=== PATIENT | male | born 1950 | race Caucasian/White ===

== ENCOUNTER 2022-12-20 10:37 | Emergency (ER) | payer OTHER, MEDICARE | END 2022-12-20 12:20 | disposition home or self-care (01) | LOC: JP.ED 10:37 | DX: S20.212A Contusion of left front wall of thorax, initial encounter (principal); I10 Essential (primary) hypertension; E78.00 Pure hypercholesterolemia, unspecified; Z87.891 Personal history of nicotine dependence; Z79.82 Long term (current) use of aspirin; Z79.899 Other long term (current) drug therapy; W01.0XXA Fall on same level from slipping, tripping and stumbling without subsequent striking against object, initial encounter; Y92.480 Sidewalk as the place of occurrence of the external cause | CPT/HCPCS: 71250; 71250-26; 99283 ==

== ENCOUNTER 2023-06-11 16:55 | Emergency (ER) | payer OTHER, MEDICARE | END 2023-06-11 17:56 | disposition home or self-care (01) | LOC: JP.ED 16:55 | DX: M25.561 Pain in right knee (principal); M76.9 Unspecified enthesopathy, lower limb, excluding foot; I10 Essential (primary) hypertension; E78.00 Pure hypercholesterolemia, unspecified; Z79.82 Long term (current) use of aspirin; Z79.899 Other long term (current) drug therapy | CPT/HCPCS: 73565; 73565-26; 99283 ==

== ENCOUNTER 2024-01-31 11:54 | Emergency (ER) | payer OTHER, MEDICARE | END 2024-01-31 13:16 | disposition home or self-care (01) | LOC: JP.ED 11:54 | DX: K08.89 Other specified disorders of teeth and supporting structures (principal); E78.00 Pure hypercholesterolemia, unspecified; I10 Essential (primary) hypertension; Z79.82 Long term (current) use of aspirin; Z79.899 Other long term (current) drug therapy | CPT/HCPCS: 99282 ==

== ENCOUNTER 2024-05-12 13:06 | Emergency (ER) | payer OTHER, MEDICARE ==
[2024-05-12 14:08] LABS: BASOPHILS ABSOLUTE AUTO 0.03 K/uL (0.00-0.10); BASOPHILS PERCENT AUTO 0.5 % (0.1-1.3); EOSINOPHILS ABSOLUTE AUTO 0.07 K/uL (0.00-0.40); EOSINOPHILS PERCENT AUTO 1.3 % (0.0-5.4); HEMATOCRIT 40.3 % (38.4-49.7); HEMOGLOBIN 13.8 g/dL (12.9-16.9); IMMATURE GRAN PERCENT AUTO 0.2 % (0.0-0.7); LYMPHOCYTES ABSOLUTE AUTO 1.72 K/uL (0.8-3.3); LYMPHOCYTES PERCENT AUTO 31.3 % (11.4-47.7); MEAN CORPUSCULAR HEMOGLOBIN 29.8 pg (31.6-35.5); MEAN CORPUSCULAR HGB CONC 34.2 g/dL (31.6-35.5); MONOCYTES ABSOLUTE AUTO 0.49 K/uL (0.20-0.90); MONOCYTES PERCENT AUTO 8.9 % (3.3-12.6); NEUTROPHILS ABSOLUTE AUTO 3.18 K/uL (1.0-7.6); NEUTROPHILS PERCENT AUTO 57.8 % (40.0-78.1); PLATELET COUNT,PLT 131 K/uL (130-375); RED BLOOD CELL COUNT 4.63 M/uL (4.14-5.76); WHITE BLOOD CELL COUNT,WBC 5.5 K/uL (3.2-11.0)
[2024-05-12 14:09] LABS: IMMATURE GRAN ABSOLUTE AUTO 0.01 K/uL (0.00-0.23)
[2024-05-12 14:23] LABS: CALCIUM 8.6 mg/dL (8.5-10.1); CREATININE 1.4 mg/dL (0.8-1.3); EST CRCL DRUG DOSING (CG) 45.46 mL/min; POTASSIUM,K 3.8 mmol/L (3.6-5.2)
[2024-05-12 14:24] LABS: ANION GAP 10.8 mmol/L (5.0-14.0)
== END 2024-05-12 15:53 | disposition home or self-care (01) ==
LOC: JP.ED 13:06
DX: S09.90XA Unspecified injury of head, initial encounter (principal); I10 Essential (primary) hypertension; E78.00 Pure hypercholesterolemia, unspecified; Z87.891 Personal history of nicotine dependence; K21.9 Gastro-esophageal reflux disease without esophagitis; Z79.82 Long term (current) use of aspirin; Z79.899 Other long term (current) drug therapy; W01.198A Fall on same level from slipping, tripping and stumbling with subsequent striking against other object, initial encounter
CPT/HCPCS: 36415; 70450; 72125; 76377; 80048; 83735; 85025; 93005; 99284

== ENCOUNTER 2025-01-21 15:38 | Emergency (ER) | payer MEDICARE, OTHER | END 2025-01-21 18:46 | disposition home or self-care (01) | LOC: JP.ED 15:38 | DX: M62.830 Muscle spasm of back (principal); I10 Essential (primary) hypertension; E78.00 Pure hypercholesterolemia, unspecified; Z79.82 Long term (current) use of aspirin; Z79.899 Other long term (current) drug therapy | CPT/HCPCS: 99283 ==